=== PATIENT | female | born 1975 | race Caucasian/White ===

== ENCOUNTER 2018-02-20 09:51 | Outpatient (CLI) | payer OTHER | END 2018-02-20 09:52 | LOC: LAB 09:51 | PROVIDERS: ATTEND Family Medicine | DX: F41.8 Other specified anxiety disorders (principal) | CPT/HCPCS: 36415; 84443 ==

== ENCOUNTER 2018-06-19 14:07 | Outpatient (CLI) | payer OTHER | END 2018-06-19 14:09 | LOC: LABRHC 14:07 | PROVIDERS: ATTEND Nurse Practitioner Family | DX: J02.9 Acute pharyngitis, unspecified (principal) | CPT/HCPCS: 87070 ==